=== PATIENT | male | born 1985 ===

== ENCOUNTER 2023-08-05 09:47 | Day surgery (SDC) | payer OTHER ==
[2023-07-27 09:55] LABS: PH,URINE 5.5 (5.0-8.0); URINE APPEARANCE Clear; URINE BILIRRUBIN Negative (NEGATIVE); URINE BLOOD Negative; URINE COLOR Yellow; URINE GLUCOSE Negative (NEGATIVE); URINE LEUKOCYTE Negative; URINE NITRATE Negative; URINE PROTEIN Negative (NEGATIVE); URINE UROBILINOGEN 0.2 E.U./dl
[2023-07-27 10:01] LABS: URINE BACTERIA 28.9 uL (0.0-1933); URINE WBC 2.4 uL (0.0-23.2)
[2023-07-27 10:13] LABS: URINE EPITHELIAL CELLS 1.3 uL (0.0-38.8); URINE RBC 0.8 uL (0.0-20.8)
[2023-07-27 10:21] LABS: HEMATOCRIT 44.9 % (39.0-48.0); HEMOGLOBIN 14.9 g/dL (13-16.00); MEAN CELL VOLUME 85.9 fL (80.0-100.00); MEAN CORPUSCULAR HEMOGLOBIN 28.6 pg (27.00-32.0); MEAN CORPUSCULAR HGB CONC 33.3 g/dl (32.0-36.0); PLATELET COUNT 173 K/uL (150-450); RED BLOOD COUNT 5.23 M/uL (4.00-6.00); RED CELL DISTRIBUTION WIDTH 13.3 % (11.5-14.5)
[2023-07-27 10:41] LABS: ALBUMIN 3.8 gm/dL (3.4-5.0); BILIRUBIN TOTAL 0.36 mg/dL (0.3-1.2); CREATININE SERUM 1.08 mg/dL (0.70-1.30); GFR 76.12; GLOBULINA 3.6 G/DL (2.4-3.5); POTASSIUM 4.14 mEq/L (3.5-5.1); TOTAL PROTEIN 7.4 gm/dL (6.4-8.2)
[2023-07-27 11:04] LABS: INR 0.97; PARTIAL THROMBOPLASTIN TIME 28.9 SECONDS (22.0-34.0); PROTHROMBIN TIME 10.2 SECONDS (9.0-11.5)
[~2023-08-05 09:47] MED LIST: COZAAR50 MG PO; ZETIA10 MG PO
[2023-08-05] MEDS ORDERED: CEFAZOLIN SODIUM 1,000 MG VIAL ONE (10:56)
[2023-08-05] MEDS ORDERED: LIDOCAINE HCL 1%/Epi 20ML VIAL IJ ONE (11:51)
[2023-08-05] MEDS ORDERED: BUPIVACAINE HCL/PF 0.5% 30ML ML ONE (11:51)
[2023-08-05] MEDS ORDERED: KETO10TA2 PO (12:27)
[2023-08-05] MEDS ORDERED: TRAMADOL HCL50 MG PO (12:27)
[2023-08-05] MEDS ORDERED: TYLENOL ARTHRI650 MG PO (12:27)
[2023-08-05] MEDS ORDERED: MIRALAX17 GM PO (12:27)
[2023-08-05] MEDS ORDERED: BUPIVACAINE HCL 30 ML VIAL IJ ONE (13:15)
[2023-08-05] MEDS ORDERED: CEFAZOLIN SODIUM 1,000 MG VIAL IV ONE (13:15)
[2023-08-06] MEDS ORDERED: LIDOCAINE HCL 1%/Epi 20ML VIAL IJ ONE (15:15)
== END 2023-08-05 17:25 | disposition home or self-care (01) ==
LOC: CIR.AMB 09:47
PROVIDERS: ATTEND Surgery
DX: K80.10 Calculus of gallbladder with chronic cholecystitis without obstruction (principal)